=== PATIENT | female | born 1985 | race Caucasian/White ===

== ENCOUNTER → 2018-10-30 | Outpatient (CLI) | payer BC | LOC: FIMAGING 07:18 | PROVIDERS: ATTEND Obstetrics & Gynecology | DX: Z34.92 Encounter for supervision of normal pregnancy, unspecified, second trimester (principal); Z3A.19 19 weeks gestation of pregnancy ==

== ENCOUNTER → 2018-11-27 | Outpatient (CLI) | payer BC | LOC: FIMAGING 09:30 | PROVIDERS: ATTEND Obstetrics & Gynecology | DX: O43.192 Other malformation of placenta, second trimester (principal); Z3A.23 23 weeks gestation of pregnancy ==

== ENCOUNTER → 2019-01-17 | Outpatient (CLI) | payer BC | LOC: FIMAGING 08:24 | PROVIDERS: ATTEND Obstetrics & Gynecology | DX: O43.123 Velamentous insertion of umbilical cord, third trimester (principal); Z3A.30 30 weeks gestation of pregnancy ==